=== PATIENT | female | born 1945 | race Caucasian/White ===

== ENCOUNTER 2019-01-18 15:40 | Emergency (ER) | payer MEDICARE, OTHER ==
[~2019-01-18] VITALS: Ht 162.6 cm; Wt 61.2 kg
--- OUTSIDE RECORDS SUMMARY | 2019-01-18 15:46 | XMS REPORT | Clinical Summary ---
Author Author Admin, SAMUEL Organization [facility] Address Unknown Phone Unavailable Allergies, Adverse Reactions, Alerts Allergy Name Reaction Description Start Date Severity Status Provider No Known Allergies Latasha Brown LEXAPRO N/V Critical Active Lindsay Miller MD FOSAMAX vomiting Critical Active Lindsay Miller MD SULFA Critical Active Lindsay Miller MD MORPHINE Critical Active Lindsay Miller MD NORVASC Critical Active Lindsay Miller MD Conditions or Problems Problem Name Problem Code Onset Date Status Entry Date Provider Comment Standard Description Annotate INTERSTITIAL CYSTITIS 595.1 Active Lindsay Miller MD Chronic interstitial cystitis BLADDER CA 188.9 Active Lindsay Miller MD Malignant neoplasm of bladder, part unspecified Medication List Medication Instructions Start Date Stop Date Generic Name NDC Status Provider Patient Instruction CALCIUM + D 500-1000-40 MG-UNT-MCG CHEW CALCIUM-VITAMIN D-VITAMIN K 72281652455 Active Lindsay Miller MD Active METOCLOPRAMIDE HCL 10 MG TABS Take/use as needed. METOCLOPRAMIDE HCL 33833163589 Active Teresa Brady Active XANAX 0.5 MG TABS prn @ hs ALPRAZOLAM 52500115784 No Longer Active Teresa Brady Active CALCIUM CARBONATE TABS qd CALCIUM CARBONATE TABS 13101887007 No Longer Active Teresa Brady Active ALENDRONATE SODIUM 35 MG TABS weekly ALENDRONATE SODIUM 93069517510 No Longer Active Lindsay Miller MD Active ASPIRIN 81 MG TBEC Take one by mouth daily ASPIRIN 50377703628 No Longer Active Lindsay Miller MD Active METOCLOPRAMIDE HCL 5 MG TABS Take one by mouth four times daily, morning, noon, early evening and bedtime. METOCLOPRAMIDE HCL 00229816820 No Longer Active Lindsay Miller MD Active PRILOSEC OTC 20 MG TBEC Take one by mouth daily OMEPRAZOLE MAGNESIUM 60932997954 No Longer Active Lindsay Miller MD Active PROTONIX 40 MG TBEC .qd PANTOPRAZOLE SODIUM 93408461094 Active Keara Gan Active PRILOSEC OTC 20 MG TBEC Take one by mouth daily PRILOSEC OTC 20 MG TBEC OMEPRAZOLE MAGNESIUM Inactive METOCLOPRAMIDE HCL 5 MG TABS Take one by mouth four times daily, morning, noon, early evening and bedtime. METOCLOPRAMIDE HCL 5 MG TABS 465634 METOCLOPRAMIDE HCL Inactive ASPIRIN 81 MG TBEC Take one by mouth daily ASPIRIN 81 MG TBEC 559654 ASPIRIN Inactive ALENDRONATE SODIUM 35 MG TABS weekly ALENDRONATE SODIUM 35 MG TABS 600033 ALENDRONATE SODIUM Inactive CALCIUM CARBONATE TABS qd CALCIUM CARBONATE TABS CALCIUM CARBONATE TABS Inactive XANAX 0.5 MG TABS prn @ hs XANAX 0.5 MG TABS 911812 ALPRAZOLAM Inactive Advance Directives Directive Description Start Date PERMISSION TO SHARE Encounters Code Encounter Date Provider Facility CPT-75835 Level 3 Est. Patient 17:26:28 CDT Lindsay Miller MD [facility] CPT-34198 Level 2 Est. Patient 17:18:34 CDT Lindsay Miller MD [facility] CPT-06641 Level 3 Est. Patient 17:11:42 CDT Lindsay Miller MD [facility] CPT-60621 Level 2 Est. 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 Patient 14:46:22 CDT J Vipin Miller MD [facility] Procedures Code Procedure Name Date Entry Date Standard Description CPT-41436 Cystoscopy 17:26:28 CDT CPT-26246 Cystoscopy 17:18:34 CDT CPT-97349 Cystoscopy 14:58:10 TOOTH POLISHER CPT-23216 Cystoscopy 17:11:42 CDT CPT-91716 Cystoscopy 17:56:18 TOOTH POLISHER CPT-11893 Cystoscopy 14:46:22 CDT
--- OUTSIDE RECORDS SUMMARY | 2019-01-18 15:47 | XMS REPORT | Continuity of Care Document ---
Author Organization Unknown Address Unknown Allergies There is no data. Medications There is no data. Problems There is no data. Procedures There is no data. Results There is no data. Encounters ACCT No. Visit Date/Time Discharge Status Pt. Type Provider Facility Loc./Unit Complaint [id number] 12/08/2018 16:00:00 12/08/2018 23:59:59 [facility] Outpatient [facility]
--- OUTSIDE RECORDS SUMMARY | 2019-01-18 15:47 | XMS REPORT | Clinical Summary ---
Author Author Admin, CANDYE Organization [facility] Address Unknown Phone Allergies, Adverse Reactions, Alerts Allergy Name Reaction [...] D 500-1000-40 MG-UNT-MCG CHEW CALCIUM-VITAMIN D-VITAMIN K 73260118602 Active Lindsay Miller MD Active METOCLOPRAMIDE HCL 10 MG TABS Take/use as needed. METOCLOPRAMIDE HCL 29432037784 Active Teresa Brady Active XANAX 0.5 MG TABS prn @ hs ALPRAZOLAM 46668273469 No Longer Active Teresa Brady Active CALCIUM CARBONATE TABS qd CALCIUM CARBONATE TABS 94214059928 No Longer Active Teresa Brady Active ALENDRONATE SODIUM 35 MG TABS weekly ALENDRONATE SODIUM 37520032399 No Longer Active Lindsay Miller MD Active ASPIRIN 81 MG TBEC Take one by mouth daily ASPIRIN 85568156247 No Longer Active Lindsay Miller MD Active METOCLOPRAMIDE HCL 5 MG TABS Take one by mouth four times daily, morning, noon, early evening and bedtime. METOCLOPRAMIDE HCL 65909795587 No Longer Active Lindsay Miller MD Active PRILOSEC OTC 20 MG TBEC Take one by mouth daily OMEPRAZOLE MAGNESIUM 94154461530 No Longer Active Lindsay Miller MD Active PROTONIX 40 MG TBEC .qd PANTOPRAZOLE SODIUM 77488023424 Active Keara Gan Active PRILOSEC OTC 20 MG TBEC Take one by mouth daily PRILOSEC OTC 20 MG TBEC OMEPRAZOLE MAGNESIUM Inactive METOCLOPRAMIDE HCL 5 MG TABS Take one by mouth four times daily, morning, noon, early evening and bedtime. METOCLOPRAMIDE HCL 5 MG TABS 982071 METOCLOPRAMIDE HCL Inactive ASPIRIN 81 MG TBEC Take one by mouth daily ASPIRIN 81 MG TBEC 893149 ASPIRIN Inactive ALENDRONATE SODIUM 35 MG TABS weekly ALENDRONATE SODIUM 35 MG TABS 235494 ALENDRONATE SODIUM Inactive CALCIUM CARBONATE TABS qd CALCIUM CARBONATE TABS CALCIUM CARBONATE TABS Inactive XANAX 0.5 MG TABS prn @ hs XANAX 0.5 MG TABS 819141 ALPRAZOLAM Inactive Advance Directives Directive Description Start Date PERMISSION TO SHARE Vital Signs Date Name Value Unit Range Description blood pressure, diastolic 60 mm[Hg] BP condon blood pressure, systolic 112 mm[Hg] BP sys height E&M 64 [in_us] Bdy height temperature E&M 96.7 [degF] Body temperature weight E&M 142 [lb_av] Weight Measured Diagnostic Results Date Name Value Unit Range Description Office Visit: 6 mo f/u cysto - Chemistry RBC, urine, dipstick non-hemolyzed trace Office Visit: 6 mo f/u cysto - Urinalysis ketones, urine, by test strip negative bilirubin, urine negative glucose, urine, semiquantitative negative pH, urine, semiquantitative 5 specific gravity, urine 1.010 urinalysis, routine Clean Catch urine color yellow appearance, urine clear leukocyte esterase, urine, by dipstick 2+ nitrite, urine, semiquantitative negative urobilinogen, urine, semiquantitative (dipstick) negative protein, urine, semiquantitative (dipstick) negative Office Visit: Surveillance cystoscopy - Chemistry RBC, urine, dipstick non-hemolyzed trace protein, total urine random negative mg/dL Office Visit: Surveillance cystoscopy - Urinalysis urinalysis, routine Clean Catch ketones, urine, by test strip negative bilirubin, urine negative glucose, urine, semiquantitative negative pH, urine, semiquantitative 6 specific gravity, urine 1.020 urine color yellow appearance, urine clear leukocyte esterase, urine, by dipstick negative nitrite, urine, semiquantitative negative urobilinogen, urine, semiquantitative (dipstick) 0.2 protein, urine, semiquantitative (dipstick) negative Encounters Code Encounter Date Provider Facility CPT-85464 Level 3 Est. Patient 17:26:28 CDT Lindsay Miller MD [facility] CPT-58342 Level 2 Est. Patient 17:18:34 CDT Lindsay Miller MD [facility] CPT-66905 Level 3 Est. Patient 17:11:42 CDT Lindsay Miller MD [facility] CPT-15633 Level 2 Est. 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 Patient 14:46:22 CDT Lindsay Miller MD [facility] Procedures Code Procedure Name Date Entry Date Standard Description CPT-17112 Cystoscopy 17:26:28 CDT CPT-09994 Cystoscopy 17:18:34 CDT CPT-58932 Cystoscopy 14:58:10 BALLPOINT PEN ASSEMBLY MACHINE OPERATOR CPT-74080 Cystoscopy 17:11:42 CDT CPT-66678 Cystoscopy 17:56:18 BALLPOINT PEN ASSEMBLY MACHINE OPERATOR CPT-15795 Cystoscopy 14:46:22 CDT
--- NOTE | 2019-01-18 16:15 | ED Chest Pain ---
General Chief Complaint: Cardiac/General Problems Stated Complaint: CHEST PAIN History of Present Illness Date Seen by Provider: January 18, 2019 Time Seen by Provider: 16:00 Initial Comments This is a 73 y/o f who presents to the ED for evaluation. Pt reports brief sensations of skipped beats (< 30secs) over the past 2-3 weeks. Reports a more prolonged episode today at approx 1300, lasted approx 30 minutes. Took ASA 182 prior to arrival. Reports significant cardiac evaluation at [place] previously including chemical stress test 2-3 years ago that was normal and a cardiac MRI that was also normal. Pt also states that she has had her palpitations evaluated in the past including holter monitor and had A-fib r/o. Largely concerned because she checked her BP at home and systolic was in 140s. States that systolic is typically in 110s. Reports brief episode of upper chest pain but states that this is somewhat typical of symptoms related to her hiatal hernia. Denies any current symptoms. pt reports longstanding history of LBBB (RITU COREAS DO) Allergies and Home Medications Allergies Coded Allergies: Sulfa (Sulfonamide Antibiotics) (Verified Allergy, Unknown, weakness, 01/18/19) amlodipine (Verified Allergy, Unknown, dizziness, 01/18/19) escitalopram (Verified Allergy, Unknown, nausea and vomiting, 01/18/19) latex (Verified Allergy, Unknown, 01/18/19) morphine (Verified Allergy, Unknown, nausea and vomiting, 01/18/19) Patient Home Medication List Home Medication List Reviewed: Yes (RITU COREAS DO) Review of Systems Review of Systems Constitutional: No chills, No fever, No weakness EENTM: No Symptoms Reported Respiratory: Denies Cough, Denies Orthopnea, Denies Shortness of Air, Denies SOA With Exertion, Denies SOA at Rest, Denies Stridor, Denies Wheezing Cardiovascular: Denies Chest Pain, Denies Edema; Palpitations; Denies Syncope Gastrointestinal: Denies Abdominal Pain, Denies Constipated, Denies Diarrhea, Denies Nausea, Denies Vomiting Genitourinary: Denies Frequency, Denies Hematuria, Denies Urgency Musculoskeletal: No back pain, No joint pain, No joint swelling, No muscle pain, No muscle stiffness, No muscle cramps Skin: No dryness, No rash Psychiatric/Neurological: No Symptoms Reported; Denies Headache (JOSSRITU Haylie OLEA) All Other Systems Reviewed Negative Unless Noted: Yes (JOSSRITU T DO) Past Gtpbizf-Zmmgji-Pxgodo Hx Patient Social History Recent Foreign Travel: No Contact w/Someone Who Travel: No (JOSSRITU Stallings ) Physical Exam Vital Signs Vital Signs - First Documented 01/18/19 15:48 Temp 97.4 Pulse 73 Resp 22 B/P (MAP) 142/68 (92) Pulse Ox 98 O2 Delivery Room Air (CASSIDY TAVAREZ) Vital Signs Capillary Refill : (SOLANGE COREASINA Haylie DO) Height, Weight, BMI Height: '" Weight: lbs. oz. kg; BMI Method: General Appearance: No Apparent Distress, WD/WN HEENT: PERRL/EOMI Neck: Normal Inspection Respiratory: Lungs Clear, Normal Breath Sounds, No Accessory Muscle Use, No Respiratory Distress Cardiovascular: Regular Rate, Rhythm, No Edema, No Gallop, No JVD, No Murmur, Normal Peripheral Pulses Gastrointestinal: Normal Bowel Sounds, No Pulsatile Mass, Non Tender, Soft Extremity: Normal Capillary Refill, Normal Range of Motion Neurologic/Psychiatric: Alert, Oriented x3, No Motor/Sensory Deficits, Normal Mood/Affect Skin: Normal Color, Warm/Dry (JOSSRITU Stallings DO) Progress/Results/Core Measures Results/Orders Lab Results Laboratory Tests Test 01/18/19 16:00 01/18/19 19:00 Range/Units White Blood Count 5.9 4.3-11.0 10^3/uL Red Blood Count 4.42 4.35-5.85 10^6/uL Hemoglobin 14.1 11.5-16.0 G/DL Hematocrit 42 35-52 % Mean Corpuscular Volume 94 80-99 FL Mean Corpuscular Hemoglobin 32 25-34 PG Mean Corpuscular Hemoglobin Concent 34 32-36 G/DL Red Cell Distribution Width 12.5 10.0-14.5 % Platelet Count 303 130-400 10^3/uL Mean Platelet Volume 9.5 7.4-10.4 FL Neutrophils (%) (Auto) 72 42-75 % Lymphocytes (%) (Auto) 20 12-44 % Monocytes (%) (Auto) 5 0-12 % Eosinophils (%) (Auto) 2 0-10 % Basophils (%) (Auto) 1 0-10 % Neutrophils # (Auto) 4.2 1.8-7.8 X 10^3 Lymphocytes # (Auto) 1.2 1.0-4.0 X 10^3 Monocytes # (Auto) 0.3 0.0-1.0 X 10^3 Eosinophils # (Auto) 0.1 0.0-0.3 10^3/uL Basophils # (Auto) 0.0 0.0-0.1 10^3/uL Neutrophils % (Manual) 64 % Lymphocytes % (Manual) 1 % Monocytes % (Manual) 27 % Eosinophils % (Manual) 5 % Basophils % (Manual) 3 % Metamyelocytes % 0 % Band Neutrophils 1 % Blood Morphology Comment NORMAL Sodium Level 141 135-145 MMOL/L Potassium Level 4.3 3.6-5.0 MMOL/L Chloride Level 101 98-107 MMOL/L Carbon Dioxide Level 25 21-32 MMOL/L Anion Gap 15 H 5-14 MMOL/L Blood Urea Nitrogen 13 7-18 MG/DL Creatinine 0.80 0.60-1.30 MG/DL Estimat Glomerular Filtration Rate > 60 BUN/Creatinine Ratio 16 Glucose Level 115 H 70-105 MG/DL Calcium Level 9.2 8.5-10.1 MG/DL Troponin T < 6 < 6 <=10 NG/L (CASSIDY TAVAREZ) Vital Signs/I&O 01/18/19 15:48 Temp 97.4 Pulse 73 Resp 22 B/P (MAP) 142/68 (92) Pulse Ox 98 O2 Delivery Room Air (CASSIDY TAVAREZ) Progress Progress Note : Progress Note 1800: CLARISSE to Dr. Tavarez. Pt has remained chest pain free. Dispo pending repeat EKG/troponin and further evaluation. (RITU COREAS DO) Progress Note : Time: 19:37 Progress Note Assumed care of the patient at shift change. The patient remains chest pain free. Repeat EKG demonstrates stable, chronic left bundle branch block but no other significant ST elevation or depression. Troponin T was repeated at 3 hours and is pending report. (CASSIDY TAVAREZ) EKG : Comment 1602: NSR, LBBB, No significant ST segment changes. HR 69 (RITU COREAS DO) Initial ECG Impression Date: January 18, 2019 Initial ECG Impression Time: 16:02 Initial ECG Rate: 69 Initial ECG Rhythm: Normal Sinus Initial ECG Intervals: QT (484) Initial ECG Impression: Normal, Nonspecific Changes Initial ECG Comparisson: Unchanged Comment Left bundle branch block without ST elevation or depression. EKG : EKG Time: 19:05 Rate: 60 Rhythm: Normal Sinus Intervals: QT (490) ECG Comparisson: Unchanged ECG Impression: Normal, Nonspecific Changes Comment Left bundle-branch block without significant ST changes. (CASSIDY TAVAREZ) Diagnostic Imaging Comments CXR IMPRESSION: Chronic-appearing interstitial scarring in the lung bases, otherwise, unremarkable. (RITU COREAS DO) Diagonstic Imaging: Xray Plain Films/CT/US/NM/MRI: chest Comments Chronic appearing interstitial scarring in the lung bases, otherwise unremarkable. Reviewed: Reviewed by Me (CASSIDY TAVAREZ) Departure Impression Primary Impression: Palpitations Additional Impression: Chest pain Qualified Codes: R07.9 - Chest pain, unspecified Disposition: 01 HOME, SELF-CARE Condition: Stable Departure-Patient Inst. Decision time for Depature: 20:05 (CASSIDY TAVAREZ) Referrals: NO,LOCAL PHYSICIAN (PCP) Primary Care Physician Patient Instructions: Chest Pain (DC), Palpitations (DC) Add. Discharge Instructions: Please read your attached handouts. PLEASE FOLLOW UP WITH DR. GUZMAN IN THE NEXT 5-7 DAYS. All discharge instructions reviewed with patient and/or family. Voiced understanding. RITU COREAS DO January 18, 2019 16:15 CASSIDY TAVAREZ January 18, 2019 19:40
[2019-01-18 16:17] LABS: HEMATOCRIT 42 % (35-52); HEMOGLOBIN 14.1 G/DL (11.5-16.0); MEAN CORPUSCULAR HEMOGLOBIN 32 PG (25-34); MEAN CORPUSCULAR VOLUME 94 FL (80-99); WHITE BLOOD COUNT 5.9 10^3/uL (4.3-11.0)
[2019-01-18 16:18] LABS: BASOPHILS % (AUTO) 1 % (0-10); EOSINOPHILS # (AUTO) 0.1 10^3/uL (0.0-0.3); EOSINOPHILS % (AUTO) 2 % (0-10); LYMPHOCYTES # (AUTO) 1.2 X 10^3 (1.0-4.0); LYMPHOCYTES % (AUTO) 20 % (12-44); MEAN CORPUSCULAR HGB CONC 34 G/DL (32-36); MEAN PLATELET VOLUME 9.5 FL (7.4-10.4); MONOCYTES # (AUTO) 0.3 X 10^3 (0.0-1.0); MONOCYTES % (AUTO) 5 % (0-12); NEUTROPHILS # (AUTO) 4.2 X 10^3 (1.8-7.8); NEUTROPHILS % (AUTO) 72 % (42-75); PLATELET COUNT 303 10^3/uL (130-400); RED CELL DISTRIBUTION WIDTH 12.5 % (10.0-14.5)
[2019-01-18 16:28] LABS: BAND NEUTROPHILS 1 %; BASOPHILS % (MANUAL) 3 %; EOSINOPHILS % (MANUAL) 5 %; LYMPHOCYTES % (MANUAL) 1 %; METAMYELOCYTES % 0 %; MONOCYTES % (MANUAL) 27 %; NEUTROPHILS % (MANUAL) 64 %
[2019-01-18 16:29] LABS: RBC MORPH NORMAL
[2019-01-18 16:30] LABS: BUN/CREATININE RATIO 16; CALCIUM 9.2 MG/DL (8.5-10.1); CARBON DIOXIDE 25 MMOL/L (21-32); CHLORIDE 101 MMOL/L (98-107); GFR ESTIMATED > 60; GLUCOSE 115 MG/DL (70-105); POTASSIUM 4.3 MMOL/L (3.6-5.0); SODIUM 141 MMOL/L (135-145)
--- NOTE | 2019-01-18 16:47 | Diagnostic Imaging Report ---
INDICATION: Chest pain, hypertension and arrhythmia. No prior examinations are available for comparison. FINDINGS: Heart size is normal. Some chronic interstitial scarring in the lung bases. No pleural effusion or pneumothorax. Mediastinum is unremarkable. There is no lobar pneumonia. IMPRESSION: Chronic-appearing interstitial scarring in the lung bases, otherwise, unremarkable. Dictated by: Dictated on workstation # [id number]
--- NOTE | 2019-01-18 18:54 | NUR ---
Report given to DOROTHY Lacey. Care transferred at this time.
[2019-01-18 20:20] VITALS: BP 142/68
== END 2019-01-18 20:20 | disposition home or self-care (01) ==
LOC: ER FS 15:42
DX: R00.2 Palpitations (principal); R07.9 Chest pain, unspecified; Z88.0 Allergy status to penicillin; Z88.8 Allergy status to other drugs, medicaments and biological substances; Z91.040 Latex allergy status; Z88.5 Allergy status to narcotic agent; Z86.79 Personal history of other diseases of the circulatory system
CPT/HCPCS: 36415; 71046; 80048; 84484; 85007; 85027; 93005

== ENCOUNTER → 2020-03-14 | Outpatient (CLI) | payer MEDICARE ==
[2020-03-14 10:52] LABS: SODIUM 139 MMOL/L (135-145)
[2020-03-14 10:53] LABS: ALANINE AMINOTRANSFERASE 44 U/L (0-55); ALKALINE PHOSPHATASE 55 U/L (40-136); BILIRUBIN,TOTAL 0.5 MG/DL (0.1-1.0); BUN/CREATININE RATIO 21; CALCIUM 9.3 MG/DL (8.5-10.1); CARBON DIOXIDE 26 MMOL/L (21-32); CHLORIDE 104 MMOL/L (98-107); CREATININE SERUM 0.75 MG/DL (0.60-1.30); GFR ESTIMATED > 60; GLUCOSE 113 MG/DL (70-105); POTASSIUM 4.3 MMOL/L (3.6-5.0); TOTAL PROTEIN 6.4 GM/DL (6.4-8.2)
[2020-03-14 10:54] LABS: BASOPHILS % (AUTO) 1 % (0-10); EOSINOPHILS # (AUTO) 0.1 10^3/uL (0.0-0.3); EOSINOPHILS % (AUTO) 3 % (0-10); HEMATOCRIT 39 % (35-52); HEMOGLOBIN 13.3 G/DL (11.5-16.0); LYMPHOCYTES # (AUTO) 1.4 X 10^3 (1.0-4.0); LYMPHOCYTES % (AUTO) 30 % (12-44); MEAN CORPUSCULAR HEMOGLOBIN 32 PG (25-34); MEAN CORPUSCULAR HGB CONC 34 G/DL (32-36); MEAN CORPUSCULAR VOLUME 94 FL (80-99); MEAN PLATELET VOLUME 9.2 FL (7.4-10.4); MONOCYTES # (AUTO) 0.3 X 10^3 (0.0-1.0); MONOCYTES % (AUTO) 7 % (0-12); NEUTROPHILS # (AUTO) 2.7 X 10^3 (1.8-7.8); NEUTROPHILS % (AUTO) 59 % (42-75); PLATELET COUNT 283 10^3/uL (130-400); RED CELL DISTRIBUTION WIDTH 12.7 % (10.0-14.5); WHITE BLOOD COUNT 4.6 10^3/uL (4.3-11.0)
[2020-03-14 15:32] LABS: CHOLESTEROL 172 MG/DL (< 200); HDL CHOLESTEROL 58 MG/DL (40-60); TRIGLYCERIDES 76 MG/DL (<150); VLDL CHOLESTEROL 15 MG/DL (5-40)
== END ==
LOC: LAB FS 08:40
PROVIDERS: ATTEND Family Medicine
DX: I25.10 Atherosclerotic heart disease of native coronary artery without angina pectoris (principal); E03.9 Hypothyroidism, unspecified
CPT/HCPCS: 36415; 80053; 80061; 84443; 85025

== ENCOUNTER 2021-04-29 11:45 | Emergency (ER) | payer MEDICARE ==
[~2021-04-29] VITALS: Ht 162.6 cm; Wt 60.3 kg
--- OUTSIDE RECORDS SUMMARY | 2021-04-29 11:50 | XMS REPORT | Clinical Summary ---
Author Author [facility] Organization [facility] Address Unknown Phone Unavailable Care Team Providers Care Product Builder Name Role Phone Melyssa Fernando MD PCP Allergies Not on File Medications Not on file Active Problems Not on file Encounters Care Team Description Date Type Specialty New WhitDOROTHY 03/19/2021 Telephone Dermatology from Last 3 Months Social History Date Tobacco Use Types Packs/Day Years Used Never Assessed Sex Assigned at Date Recorded Not on file Last Filed Vital Signs Not on file Plan of Treatment Care Team Description Date Type Specialty Patsy Stewart MD [address] [address] [phone] 08/28/2021 Office Visit Dermatology Health Maintenance Due Date Last Done Comments Advance Directive has 1945 been filed Hepatitis C Screen 1945 Medicare Annual Wellness 1945 Td/Tdap# 1945 COVID-19 Vaccine (1) 1959 Colorectal Screening via 1997 Colonoscopy Mammogram Screening 1997 Zoster Vaccine# (1 of 2) 1997 Advance Directive 2012 Conversation Depression Screening 2012 PHQ-9 # Fall Risk Assessment # 2012 Osteoporosis Screening 2012 Patient Needs Advance 2012 Directive Pneumococcal Vaccine: 65+ 2012 Years (1 of 1 - PPSV23) Influenza Vaccine (#1) 2021 Results Not on filefrom Last 3 Months Insurance Type Payer Benefit Subscriber ID Effective Phone Address Plan / Dates Group MEDICARE REPLACEMENT PLAN HUMANA [id number] 2020-P MEDICARE resent Advance Directives For more information, please contact: [phone] 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
--- OUTSIDE RECORDS SUMMARY | 2021-04-29 11:50 | XMS REPORT | Encounter Summary ---
Author Author [facility] Organization [facility] Address Unknown Phone Unavailable Care Team Providers Care Electronics Engineering Technician Name Role Phone Melyssa Fernando MD PCP Encounter Details Care Team Description Date Type Department Whit Wolff RN 03/19/2021 Telephone [facility] [address] [facility] [address] [place] [address] Social History Date Tobacco Use Types Packs/Day Years Used Never Assessed Sex Assigned at Date Recorded Not on file documented as of this encounter Miscellaneous Notes * Telephone Encounter - Whit Wolff RN - 03/19/2021 11:42 AM CDT Pt. Called and left message. She reported that her appt. Scheduled with Dr. French and is for a second opinion and was wondering if it would be covered. Called pt. Back and left message informing pt. That there is no way that we coul d tell her if her insurance will cover the appt. Informed pt. To call her insura nce and check with them and informed her that if anything she could call Luis Antonio barrett. Left direct office # for any further ?'s. documented in this encounter Plan of Treatment Care Team Description Date Type Specialty Patsy Stewart MD [address] [facility] [address] [place] [address] 08/28/2021 Office Visit Dermatology documented as of this encounter Visit Diagnoses Not on filedocumented in this encounter
--- NOTE | 2021-04-29 12:01 | ED Chest Pain ---
General Chief Complaint: Cardiac/General Problems Stated Complaint: CHEST PAIN Source: patient Exam Limitations: no limitations History of Present Illness Date Seen by Provider: Apr 29, 2021 Time Seen by Provider: 11:47 Initial Comments 75-year-old female with no significant past medical history other than intermittent GERD that she takes a PPI for every once in a while coming in due to chest pain, shortness of breath, and palpitations. This started this morning around 8 AM. She says it is not unlike previous times when this is occurred. She has had multiple stress tests in the past and Holter monitors which have all been largely unrevealing. She says she has never been diagnosed with A. fib before. She did take 3 aspirin this morning when she started having the symptoms. The chest pain is mild, intermittent, and seems to be worse when she is really having the bad palpitations. The shortness of breath is worse with exertion. Endorses generalized weakness. Denies any fever, nausea, vomiting, abdominal pain, diarrhea, focal weakness or numbness, vision changes, headache, or any other concerns. She has been eating and drinking normally. Allergies and Home Medications Allergies Coded Allergies: Sulfa (Sulfonamide Antibiotics) (Verified Allergy, Unknown, weakness, 01/18/19) alendronate sodium (Verified Allergy, Unknown, 04/29/21) amlodipine (Verified Allergy, Unknown, dizziness, 01/18/19) escitalopram (Verified Allergy, Unknown, nausea and vomiting, 01/18/19) latex (Verified Allergy, Unknown, 01/18/19) morphine (Verified Allergy, Unknown, nausea and vomiting, 01/18/19) Patient Home Medication List Home Medication List Reviewed: Yes Review of Systems Review of Systems Constitutional: No chills, No fever EENTM: No Blurred Vision Respiratory: Denies Cough; Shortness of Air Cardiovascular: Chest Pain Gastrointestinal: Denies Abdominal Pain, Denies Diarrhea, Denies Nausea, Denies Vomiting Genitourinary: Denies Frequency Musculoskeletal: No back pain Skin: No rash Psychiatric/Neurological: Denies Anxiety, Denies Depressed Endocrine: No Symptoms Reported Hematologic/Lymphatic: No Symptoms Reported Past Iigrpzi-Zblxil-[id number] Hx Patient Social History Tobacco Use?: No Seasonal Allergies Seasonal Allergies: No Past Medical History Surgeries: Yes (EGD, torrie and baso, biopsy of breast, colonoscopy) Section Respiratory: No Cardiac: Yes (arteriosclerotic heart disease) Neurological: No Genitourinary: Yes (HX of bladder carcinoma) Gastrointestinal: Yes (gastritis and duodenitis, serrated polyp of colon) Gastroesophageal Reflux, Hiatal Hernia Musculoskeletal: No Endocrine: No HEENT: No Cancer: No Psychosocial: Yes Depression Integumentary: No Blood Disorders: No Physical Exam Vital Signs Vital Signs - First Documented 04/29/21 11:48 Temp 36.0 Pulse 121 Resp 23 B/P (MAP) 112/54 (73) Pulse Ox 98 O2 Delivery Room Air Capillary Refill : Height, Weight, BMI Height: 5'4.00" Weight: 135lbs. 0oz. [id number]; BMI Method:Stated General Appearance: No Apparent Distress, WD/WN HEENT: PERRL/EOMI, Normal ENT Inspection, Pharynx Normal Neck: Full Range of Motion, Normal Inspection, Non Tender, Supple Respiratory: Chest Non Tender, Lungs Clear, Normal Breath Sounds, No Accessory Muscle Use, No Respiratory Distress Cardiovascular: No Edema, No JVD, Normal Peripheral Pulses, Irregularly Irregu lar, Tachycardia Gastrointestinal: Normal Bowel Sounds, Non Tender, Soft; No Distended, No Guarding, No Rebound Extremity: Normal Capillary Refill, Normal Inspection, Normal Range of Motion, Non Tender, No Calf Tenderness, No Pedal Edema Neurologic/Psychiatric: Alert, Oriented x3, No Motor/Sensory Deficits, Normal Mood/Affect, 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 II-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 Norm as Tested; No Abnormal Gait Skin: Normal Color, Warm/Dry Lymphatic: No Adenopathy Progress/Results/Core Measures Results/Orders Lab Results Laboratory Tests Test 04/29/21 11:51 04/29/21 11:53 Range/Units White Blood Count 8.2 4.3-11.0 10^3/uL Red Blood Count 4.65 3.80-5.11 10^6/uL Hemoglobin 14.7 11.5-16.0 g/dL Hematocrit 44 35-52 % Mean Corpuscular Volume 94 80-99 fL Mean Corpuscular Hemoglobin 32 25-34 pg Mean Corpuscular Hemoglobin Concent 34 32-36 g/dL Red Cell Distribution Width 12.2 10.0-14.5 % Platelet Count 339 130-400 10^3/uL Mean Platelet Volume 9.2 9.0-12.2 fL Immature Granulocyte % (Auto) 0 % Neutrophils (%) (Auto) 75 42-75 % Lymphocytes (%) (Auto) 17 12-44 % Monocytes (%) (Auto) 6 0-12 % Eosinophils (%) (Auto) 1 0-10 % Basophils (%) (Auto) 1 0-10 % Neutrophils # (Auto) 6.1 1.8-7.8 X 10^3 Lymphocytes # (Auto) 1.4 1.0-4.0 X 10^3 Monocytes # (Auto) 0.5 0.0-1.0 X 10^3 Eosinophils # (Auto) 0.1 0.0-0.3 10^3/uL Basophils # (Auto) 0.0 0.0-0.1 10^3/uL Immature Granulocyte # (Auto) 0.0 0.0-0.1 10^3/uL Prothrombin Time 13.1 12.2-14.7 SEC INR Comment 1.0 0.8-1.4 Activated Partial Thromboplast Time 29 24-35 SEC Sodium Level 138 135-145 MMOL/L Potassium Level 4.4 3.6-5.0 MMOL/L Chloride Level 105 98-107 MMOL/L Carbon Dioxide Level 25 21-32 MMOL/L Anion Gap 8 5-14 MMOL/L Blood Urea Nitrogen 16 7-18 MG/DL Creatinine 0.72 0.60-1.30 MG/DL Estimat Glomerular Filtration Rate 79 BUN/Creatinine Ratio 22 Glucose Level 125 H 70-105 MG/DL Calcium Level 9.4 8.5-10.1 MG/DL Corrected Calcium 9.3 8.5-10.1 MG/DL Magnesium Level 1.9 1.6-2.4 MG/DL Total Bilirubin 0.4 0.1-1.0 MG/DL Aspartate Amino Transf (AST/SGOT) 30 5-34 U/L Alanine Aminotransferase (ALT/SGPT) 27 0-55 U/L Alkaline Phosphatase 73 40-136 U/L Troponin I < 0.30 <0.30 NG/ML Pro-B-Type Natriuretic Peptide 286.8 H <75.0 PG/ML Total Protein 6.8 6.4-8.2 GM/DL Albumin 4.1 3.2-4.5 GM/DL My Orders Orders - MUNDO MARIA MD Cbc With Automated Diff (04/29/21 12:02) Magnesium (04/29/21 12:02) Chest 1 View Ap/Pa Only (04/29/21 12:02) Ekg Tracing (04/29/21 12:02) Comprehensive Metabolic Panel (04/29/21 12:02) Protime With Inr (04/29/21 12:02) Partial Thromboplastin Time (04/29/21 12:02) O2 (04/29/21 12:02) Monitor-Rhythm Ecg Trace Only (04/29/21 12:02) Ed Iv/Invasive Line Start (04/29/21 12:02) Troponin I Fs (04/29/21 12:02) Probnp Fs (04/29/21 12:02) Lactated Ringers (Lr 1000 Ml Iv Solution (04/29/21 12:15) Metoprolol Tartrate (Ir) Tab (Lopressor (04/29/21 12:15) Ekg Tracing (04/29/21 12:19) Thyroid Stimulating Hormone (04/29/21 11:51) Medications Given in ED Current Medications Medications Dose Ordered Sig/Stan Route Start Time Stop Time Status Last Admin Dose Admin Metoprolol Tartrate 12.5 mg ONCE ONCE PO 04/29/21 12:15 04/29/21 12:16 DC 04/29/21 12:31 12.5 MG Vital Signs/I&O 04/29/21 11:48 Temp 36.0 Pulse 121 Resp 23 B/P (MAP) 112/54 (73) Pulse Ox 98 O2 Delivery Room Air Progress Progress Note : Progress Note 75-year-old female with above history coming in due to palpitations, chest pain, shortness of breath. ABCs were intact on presentation although she was in A. fib on the monitor with RVR with rates in the 120s to 140s. Blood pressure was normal at this time. EKG ordered and interpreted by me showing atrial fibrillation, left bundle branch block, rate of 123. I personally reviewed her EKG from December 2018 and she did not have atrial fibrillation at that time. She says they have never actually caught her in A. fib. I was discussing treatment options for her and while discussing with her, she foot back to sinus rhythm on the monitor. Repeat EKG confirms this. Her left bundle branch block is longstanding and not new. She has no other ischemic changes including does not meet Scarbossa criteria. Basic labs will be obtained including electrolytes, cardiac markers. Chest x-ray will be ordered as well given her shortness of breath. She will be given a small bolus of IV fluids and oral metoprolol to help keep her rate controlled. Her [id number] score is 2. Her HAS-BLED score is 1. Other labs significant for negative troponin, slightly elevated proBNP but not diagnostic of heart failure. Additionally she does not have any physical exam findings that would be consistent with heart failure. Creatinine is normal. Given she has paroxysmal A. fib, is now in sinus rhythm, blood pressure is normal, and she is now asymptomatic feeling back to normal, I believe she is appropriate for discharge. Her weight is 60 kg so she will get 2-1/2 mg of E liquis twice daily and I will also start her on low-dose metoprolol for rate control. I only gave her 2 weeks of prescription, because I recommend she follow-up with her primary care doctor to decide if they want to continue these medicines versus changing to a different medication. I discussed the risks and benefits of blood thinners with the patient and we believe the benefits are greater at this time and she wants to take the blood thinner. She was then discharged home in stable condition with strict return precautions Initial ECG Impression Date: Apr 29, 2021 Initial ECG Impression Time: 11:46 Initial ECG Rate: 123 Initial ECG Rhythm: A Fib/Flutter Comment Atrial fibrillation with a rate of 123, wide QRS with a left bundle branch block, EKG does not meet Helio's criteria, compared to prior EKG there is new atrial fibrillation, but the left bundle branch block is still present EKG : EKG Time: 12:12 Rate: 77 Rhythm: Normal Sinus Comment Compared to prior EKG, now is in sinus rhythm with left bundle branch block still present Departure Impression Primary Impression: Paroxysmal A-fib Additional Impression: Chest pain Qualified Codes: R07.9 - Chest pain, unspecified Disposition: 01 HOME, SELF-CARE Condition: Improved Departure-Patient Inst. Decision time for Depature: 13:53 Referrals: MIROSLAVA YEN MD (PCP/Family) Primary Care Physician Patient Instructions: Chest Pain (DC), Atrial Fibrillation Add. Discharge Instructions: You were seen in the emergency department for chest pain and feel like your heart was racing. You were in atrial fibrillation. He then came out of atrial fibrillation and now are back to a normal heart rhythm. You likely switch back and forth when you are feeling bad and that is what you have been feeling. I will send a prescription to [facility] for a blood thinner Eliquis as well as something to keep your heart rate down called metoprolol. Take your blood pressure and heart rate before you take the metoprolol. If your blood pressure is less than 100 on the top number or your heart rate is less than 60 then do not take the medication at that time. I am only writing a prescription for the next 2 weeks. Please follow-up with your primary care doctor to continue these or they may want to change the medications around. As always, if you are having any chest pain, shortness of breath, or any other concerns and please call 911 or come to the ER. All discharge instructions reviewed with patient and/or family. Voiced understanding. Scripts Metoprolol Tartrate (Metoprolol Tartrate) 25 Mg Tablet 12.5 MG PO BID for 14 Days, #14 TAB Prov: MUNDO MARIA MD 04/29/21 Apixaban (Eliquis) 2.5 Mg Tablet 2.5 MG PO BID for 14 Days, #28 TAB Prov: MUNDO MARIA MD 04/29/21 MUNDO MARIA MD Apr 29, 2021 12:01
[2021-04-29] MEDS ORDERED: LACTATED RINGERS 1,000 ML IV SCH (12:15)
[2021-04-29] MEDS ORDERED: meTOprolol TARTRATE 25 MG (LOPRESSOR) TABLET PO ONE (12:15)
[2021-04-29 12:16] LABS: BASOPHILS % (AUTO) 1 % (0-10); EOSINOPHILS # (AUTO) 0.1 10^3/uL (0.0-0.3); EOSINOPHILS % (AUTO) 1 % (0-10); HEMATOCRIT 44 % (35-52); HEMOGLOBIN 14.7 g/dL (11.5-16.0); LYMPHOCYTES # (AUTO) 1.4 X 10^3 (1.0-4.0); LYMPHOCYTES % (AUTO) 17 % (12-44); MEAN CORPUSCULAR HEMOGLOBIN 32 pg (25-34); MEAN CORPUSCULAR HGB CONC 34 g/dL (32-36); MEAN CORPUSCULAR VOLUME 94 fL (80-99); MEAN PLATELET VOLUME 9.2 fL (9.0-12.2); MONOCYTES # (AUTO) 0.5 X 10^3 (0.0-1.0); MONOCYTES % (AUTO) 6 % (0-12); NEUTROPHILS # (AUTO) 6.1 X 10^3 (1.8-7.8); NEUTROPHILS % (AUTO) 75 % (42-75); PLATELET COUNT 339 10^3/uL (130-400); WHITE BLOOD COUNT 8.2 10^3/uL (4.3-11.0)
[2021-04-29 12:17] LABS: PROTHROMBIN TIME PATIENT 13.1 SEC (12.2-14.7)
[2021-04-29 12:19] LABS: BILIRUBIN,TOTAL 0.4 MG/DL (0.1-1.0); CALCIUM 9.4 MG/DL (8.5-10.1); CREATININE SERUM 0.72 MG/DL (0.60-1.30); POTASSIUM 4.4 MMOL/L (3.6-5.0)
[2021-04-29 12:20] LABS: ALBUMIN 4.1 GM/DL (3.2-4.5); TOTAL PROTEIN 6.8 GM/DL (6.4-8.2)
[2021-04-29 12:35] LABS: MAGNESIUM 1.9 MG/DL (1.6-2.4)
--- NOTE | 2021-04-29 12:44 | Diagnostic Imaging Report ---
EXAMINATION: Chest radiograph, portable AP view. DATE: 04/29/2021 12:22 PM INDICATION: 75-year-old female, chest pain. COMPARISON: January 18, 2019 chest radiographs. FINDINGS: Heart size and mediastinal contours are unchanged. There is no identified pneumothorax. There is no large pleural effusion. There are calcified granulomas. There is no interval focal airspace consolidation. IMPRESSION: 1. No identified acute cardiopulmonary abnormality. Dictated by: Dictated on workstation # [id number]
[2021-04-29] MEDS ORDERED: APIX2.5T PO (13:56)
[2021-04-29] MEDS ORDERED: METO-333 PO (13:56)
[2021-04-29 14:00] VITALS: BP 110/57
== END 2021-04-29 14:00 | disposition home or self-care (01) ==
LOC: EDUNIT# 11:45 → ER FS 11:47
DX: I48.0 Paroxysmal atrial fibrillation (principal); R07.9 Chest pain, unspecified
CPT/HCPCS: 36415; 71045; 80053; 83735; 83880; 84443; 84484; 85025; 85610; 85730; 93005; 93041

== ENCOUNTER → 2021-08-15 | Outpatient (CLI) | payer MEDICARE ==
[~2021-08-15] MED LIST: APIX2.5T PO; METO-333 PO
[2021-08-15 12:22] LABS: BILIRUBIN,TOTAL 0.4 MG/DL (0.1-1.0); CALCIUM 9.2 MG/DL (8.5-10.1); CREATININE SERUM 0.74 MG/DL (0.60-1.30); POTASSIUM 4.3 MMOL/L (3.6-5.0)
[2021-08-15 12:23] LABS: ALBUMIN 4.1 GM/DL (3.2-4.5); TOTAL PROTEIN 7.1 GM/DL (6.4-8.2)
== END ==
LOC: LAB FS 10:11
PROVIDERS: ATTEND Family Medicine
DX: I10 Essential (primary) hypertension (principal)
CPT/HCPCS: 36415; 80053; 80061

== ENCOUNTER → 2021-09-19 | Outpatient (CLI) | payer MEDICARE ==
[2021-09-19 10:22] LABS: CREATININE SERUM 0.73 MG/DL (0.60-1.30); POTASSIUM 4.5 MMOL/L (3.6-5.0)
[2021-09-19 10:23] LABS: ALBUMIN 4.3 GM/DL (3.2-4.5); BILIRUBIN,TOTAL 0.5 MG/DL (0.1-1.0); CALCIUM 9.3 MG/DL (8.5-10.1)
== END ==
LOC: LAB FS 08:09
PROVIDERS: ATTEND Family Medicine
DX: M85.80 Other specified disorders of bone density and structure, unspecified site (principal)
CPT/HCPCS: 36415; 80053